=== PATIENT | male | born 1930 | race Caucasian/White ===

== ENCOUNTER → 2018-03-17 | Day surgery (SDC) | payer MEDICARE, BC ==
[2018-03-11 11:55] LABS: BASOPHILS # (AUTO) 0.1 (0.0-0.1); BASOPHILS % 0.5 % (0.0-1.0); EOSINOPHILS # (AUTO) 0.1 (0.0-0.4); EOSINOPHILS % 1.5 % (0.0-6.0); HEMATOCRIT 44.6 % (38.2-49.6); HEMOGLOBIN 15.1 g/dL (14.0-18.0); LYMPHOCYTES # (AUTO) 1.6 (1.0-3.2); LYMPHOCYTES % 16.9 % (18.0-39.1); MEAN CORPUSCULAR HEMOGLOBIN 31.7 pg (28-32); MEAN CORPUSCULAR HGB CONC 33.9 g/dL (31-35); MEAN CORPUSCULAR VOLUME 93.5 fL (81-99); MONOCYTES # (AUTO) 1.3 (0.2-0.8); MONOCYTES % 13.9 % (4.4-11.3); NEUTROPHILS # (AUTO) 6.4 (2.1-6.9); NEUTROPHILS % 66.7 % (38.7-80.0); PLATELET COUNT 190 x10e3/uL (140-360); RED BLOOD COUNT 4.77 x10e6/uL (4.3-5.7); RED CELL DISTRIBUTION WIDTH 13.2 % (11.7-14.4)
[2018-03-11 12:11] LABS: ANION GAP 13.3 mmol/L (8-16); CALCIUM 9.7 mg/dL (8.4-10.2); CREATININE, SERUM 1.4 mg/dL (0.72-1.25); POTASSIUM 4.3 mmol/L (3.5-5.1)
--- NOTE | 2018-03-11 12:24 | Diagnostic Imaging Report ---
EXAMINATION: PA and lateral views of the chest. 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 Lungs: The lungs are well inflated and clear. No pneumonia or pulmonary edema. Pleura: No pleural effusion or pneumothorax. Heart and mediastinum: The cardiomediastinal silhouette is normal. Bones and soft tissues: No acute bony abnormalities. IMPRESSION: No acute cardiopulmonary abnormalities. Signed by: Dr. Sachin Muniz M.D. on 03/11/2018 12:21 PM
[~2018-03-17] MED LIST: ACETAMINOPHEN 1000 MG/100 ML 100 ML IV ONE; ACETAMINOPHEN 325 MG/10 ML UDC ONE; ARICEPT5 MG PO; ASPIR 8181 MG PO; CEFTRIAXONE SOD 1 GM VIAL ONE; DEXAMETHASONE SOD PHOS INJ 4 MG/ML VIAL ONE; FENTANYL CITRATE/PF 100MCG/2 ML INJ ONE; FUROSEMIDE40 MG PO; LIDOCAINE HCL 2% LOCAL INJ 5 ML SDV VIAL INJ ONE; LORAZEPAM0.5 MG PO; NAMENDA10 MG PO; NIFEDIPINE10 MG PO; NUEDEXTA 20-101 EACH PO; ONDANSETRON HCL INJ 2 MG/ML VIAL ONE; PROPOFOL IV EMULSION 10 MG/ML 20 ML VIAL ONE; SEVOFLURANE INHAL SOLN 250 ML PEN BTL ONE; SYMBICORT 80-10.2 GM INH; TAMSULOSIN HCL0.4 MG PO; ULTRAM50 MG PO; VESICARE5 MG PO
--- OUTSIDE RECORDS SUMMARY | 2018-03-17 09:11 | XMS REPORT | Clinical Summary ---
Author Author [facility] Organization [facility] Address Unknown Phone Unavailable Care Team Providers Care Equipment Oiler Name Role Phone Asked, No Pcp PCP Unavailable Allergies No Known Allergies Medications End Date Status Medication Sig Dispensed Refills Start Date Active memantine (NAMENDA) 10 MG Take 28 mg by 0 tablet mouth daily. Active tamsulosin (FLOMAX) 0.4 Take 0.4 mg 0 mg capsule,extended by mouth release 24hr daily. Active oxybutynin (DITROPAN) 5 Take 10 mg by 0 MG tablet mouth 3 (three) times a day. Active furosemide (LASIX) 40 mg Take 40 mg by 0 tablet mouth 2 (two) times a day. Active donepezil (ARICEPT) 10 MG Take 10 mg by 0 tablet mouth nightly. Active LORAZepam (ATIVAN) 0.5 MG Take 0.5 mg 0 tablet by mouth every 6 (six) hours as needed for anxiety. Active metoprolol tartrate Take 25 mg by 0 (LOPRESSOR) 25 mg tablet mouth 2 (two) times a day. Active alfuzosin (UROXATRAL) 10 Take 10 mg by 0 mg 24 hr tablet mouth daily. Active aspirin (ECOTRIN) 81 MG Take 81 mg by 0 enteric coated tablet mouth daily. 08/08/2017 apixaban (ELIQUIS) 5 mg Take 1 tablet 60 tablet 0 tablet (5 mg total) 8 by mouth 2 (two) times a day for 30 days. Active Problems Problem Noted Date Chest pain 07/08/2017 Irregular heart beat 07/07/2017 Encounters Care Team Description Date Type Specialty Nav Rahman MD Obudulu, Rosemary Ogonnaya, MD Irregular heart beat (Primary Dx); Junctional bradycardia; Essential hypertension; Chest pain, unspecified type 07/07/2017 Emergency General Internal Medicine - 07/09/2017 after 03/16/2017 Social History Date Tobacco Use Types Packs/Day Years Used Never Assessed Sex Assigned at Date Recorded Not on file Industry Job Start Date Occupation Not on file Not on file Not on file Travel End Travel History Travel Start No recent travel history available. Last Filed Vital Signs Time Taken Vital Sign Reading 07/09/2017 3:32 PM EVALUATION MANAGER Blood Pressure 143/74 07/09/2017 3:32 PM EVALUATION MANAGER Pulse 89 07/09/2017 3:32 PM EVALUATION MANAGER Temperature 36.7 C (98 F) 07/09/2017 3:32 PM EVALUATION MANAGER Respiratory Rate 18 07/09/2017 3:32 PM EVALUATION MANAGER Oxygen Saturation 96% - Inhaled Oxygen - Concentration 07/09/2017 8:01 AM EVALUATION MANAGER Weight 87.7 kg (193 lb 7 oz) 07/07/2017 9:21 PM EVALUATION MANAGER Height 172.7 cm (5' 8") 07/09/2017 8:01 AM EVALUATION MANAGER Body Mass Index 29.41 Plan of Treatment Health Maintenance Due Date Last Done Comments SHINGRIX VACCINE (1 of 2) 01/15/1982 ZOSTER VACCINE 1992 PNEUMOCOCCAL 01/15/1997 POLYSACCHARIDE VACCINE AGE 65 AND OVER PNEUMOCOCCAL-13 01/15/1997 INFLUENZA VACCINE 12/01/2017 Procedures Comments Procedure Name Priority Date/Time Associated Diagnosis NM MYOCARDIAL PERFUSION Routine 07/09/2017 REST STRESS 1 DAY 1:07 PM EVALUATION MANAGER CV STRESS TEST NUCLEAR Routine 07/09/2017 CARDIO 1:07 PM EVALUATION MANAGER ZZESTIMATED GFR Routine 07/09/2017 8:58 AM EVALUATION MANAGER B NATRIURETIC PEPTIDE Routine 07/09/2017 8:58 AM EVALUATION MANAGER HC COMPLETE BLD COUNT Routine 07/09/2017 W/AUTO DIFF 8:58 AM EVALUATION MANAGER BASIC METABOLIC PANEL Routine 07/09/2017 8:58 AM EVALUATION MANAGER ECHOCARDIOGRAM 2D Routine 07/09/2017 COMPLETE W MMODE SPECTRAL 7:41 AM EVALUATION MANAGER COLOR DOPPLER ([id number]) HEMOGLOBIN A1C Routine 07/08/2017 4:16 AM EVALUATION MANAGER THYROID STIMULATING Routine 07/08/2017 HORMONE 4:16 AM EVALUATION MANAGER TROPONIN Timed 07/08/2017 4:16 AM EVALUATION MANAGER TROPONIN Timed 07/07/2017 8:30 PM EVALUATION MANAGER ECG 12-LEAD Routine 07/07/2017 7:36 PM EVALUATION MANAGER TROPONIN Timed 07/07/2017 5:00 PM EVALUATION MANAGER XR CHEST 1 VW STAT 07/07/2017 1:43 PM EVALUATION MANAGER PARTIAL THROMBOPLASTIN STAT 07/07/2017 TIME (PTT) 1:18 PM EVALUATION MANAGER PROTHROMBIN TIME WITH INR STAT 07/07/2017 1:18 PM EVALUATION MANAGER ZZESTIMATED GFR STAT 07/07/2017 1:18 PM EVALUATION MANAGER B NATRIURETIC PEPTIDE STAT 07/07/2017 1:18 PM EVALUATION MANAGER TROPONIN STAT 07/07/2017 1:18 PM EVALUATION MANAGER COMPREHENSIVE METABOLIC STAT 07/07/2017 PANEL 1:18 PM EVALUATION MANAGER HC COMPLETE BLD COUNT STAT 07/07/2017 W/AUTO DIFF 1:18 PM EVALUATION MANAGER ECG ED PRELIMINARY Routine 07/07/2017 INTERPRETATION 1:07 PM EVALUATION MANAGER ECG 12-LEAD STAT 07/07/2017 12:51 PM EVALUATION MANAGER after 03/16/2017 Results * CV stress test (07/09/2017 1:07 PM EVALUATION MANAGER) Resting HR 52 [facility] Resting BP 163 [facility] Peak MET Achieved 1.0 [facility] Protocol Name LEXJEANNIE H MUSE Time in Exercise Phase 00:00:53 [facility] Max Systolic BP 163 [facility] Max Diastolic BP 84 [facility] Max Heart Rate 68 [facility] Max Predicted Heart Rate 135 [facility] Target HR Formula (220 - Age)*85% [facility] Arrhy During Ex ventricular premature beats [facility] ECG Interp During Ex none [facility] Ex Summary Comment Normal stress test, MYOVIEW TO H MUSE FOLLOW Chest Pain Statement none [facility] Overall HR Response to appropriate [facility] MUSE Exercise Overall BP Response To normal resting BP - [facility] MUSE Exercise appropriate response Reason for Termination Protocol Completed... [facility] MUSE Stress Test Impression -Electronically Signed By [facility] Anyi Leon MD ([id number]), video effects editor José Miguel De Dios ([id number]) on 07/09/2017 11:11:11 AM Target HR 114.[address] [facility] MUSE Performing Organization Address City/[facility] Phone Number [facility] MUSE [address] [place] [address] * Nm myocardial perfusion (07/09/2017 1:07 PM EVALUATION MANAGER) Target HR 114.75 bpm [facility] Resting HR 47 BPM [facility] Resting BP 163/84 mmHg [facility] O2 sat rest 97 % [facility] Post peak HR 68 bpm [facility] Percent HR 59.26 % [facility] Post peak BP 163/84 mmHg [facility] O2 sat peak 97 % [facility] Narrative Performed At [facility] No chest pain No exercise induced ST-T changes. No arrhythmias with exercise. Normal heart rate and BP response. Myoview report Diaphragmatic attenuation artifact No conclusive significant large reversible Ischemia Normal wall motion EF 59 % Performing Organization Address [facility] Phone Number [facility] [address] [place] [address] * Estimated GFR (07/09/2017 8:58 AM EVALUATION MANAGER) Only the most recent of 2 results within the time period is included. GFR Non Af Amer 48 (A) mL/min/1.73 m2 [facility] DEPARTMENT OF PATHOLOGY AND GENOMIC MEDICINE GFR Af Amer 58 (A) mL/min/1.73 m2 [facility] DEPARTMENT OF Comment: PATHOLOGY AND Chronic kidney disease: <60 GENOMIC MEDICINE mL/min/1.73m2 Kidney failure: <15 mL/min/1.73m2 The estimated GFR is calculated from the IDMS-traceable Modification of Diet in Renal Disease Equation. The accuracy of the calculation is poor when the creatinine is normal. Calculated values >90 mL/min/1.73m2 are not reported. This equation has not been validated in children (<18 years), women, the elderly (>70 years), or ethnic groups other than Caucasians and Americans. Specimen Plasma specimen Performing Organization Address City/[facility] Phone Number [facility] [address] [place] [address] PATHOLOGY AND GENOMIC MEDICINE * CBC with platelet and differential (07/09/2017 8:58 AM EVALUATION MANAGER) Only the most recent of 2 results within the time period is included. WBC 8.2 4.2 - 11.0 k/uL [facility] DEPARTMENT OF PATHOLOGY AND GENOMIC MEDICINE RBC 4.75 4.04 - 5.86 m/uL [facility] DEPARTMENT OF PATHOLOGY AND GENOMIC MEDICINE HGB 14.8 13.0 - 17.3 g/dL [facility] DEPARTMENT OF PATHOLOGY AND GENOMIC MEDICINE HCT 44.7 34.0 - 45.0 % [facility] DEPARTMENT OF PATHOLOGY AND GENOMIC MEDICINE MCV 94.1 80.0 - 98.0 fL [facility] DEPARTMENT OF PATHOLOGY AND GENOMIC MEDICINE MCH 31.2 27.0 - 34.0 pg [facility] DEPARTMENT OF PATHOLOGY AND GENOMIC MEDICINE MCHC 33.1 31.5 - 36.5 g/dL [facility] DEPARTMENT OF PATHOLOGY AND GENOMIC MEDICINE RDW - SD 45.2 37.0 - 51.0 fL [facility] DEPARTMENT OF PATHOLOGY AND GENOMIC MEDICINE MPV 10.4 7.4 - 10.4 fL [facility] DEPARTMENT OF PATHOLOGY AND GENOMIC MEDICINE Platelet count 181 150 - 400 k/uL [facility] DEPARTMENT OF PATHOLOGY AND GENOMIC MEDICINE Nucleated RBC 0.00 /100 WBC [facility] DEPARTMENT OF PATHOLOGY AND GENOMIC MEDICINE Neutrophils 68.9 (H) 36.0 - 66.0 % [facility] DEPARTMENT OF PATHOLOGY AND GENOMIC MEDICINE Lymphocytes 18.5 (L) 24.0 - 44.0 % [facility] DEPARTMENT OF PATHOLOGY AND GENOMIC MEDICINE Monocytes 8.2 (H) 0.0 - 6.0 % [facility] DEPARTMENT OF PATHOLOGY AND GENOMIC MEDICINE Eosinophils 3.4 0.0 - 6.0 % [facility] DEPARTMENT OF PATHOLOGY AND GENOMIC MEDICINE Basophils 0.6 0.0 - 1.2 % [facility] DEPARTMENT OF PATHOLOGY AND GENOMIC MEDICINE Immature granulocytes 0.4 0.0 - 1.0 % [facility] DEPARTMENT OF PATHOLOGY AND GENOMIC MEDICINE Specimen Blood Performing Organization Address City/State/Zipcode Phone Number [facility] [place] [address] PATHOLOGY AND GENOMIC MEDICINE * B natriuretic peptide (07/09/2017 8:58 AM EVALUATION MANAGER) Only the most recent of 2 results within the time period is included. BNP 342 (H) 0 - 100 pg/mL [facility] DEPARTMENT OF PATHOLOGY AND GENOMIC MEDICINE Specimen Blood Performing Organization Address [facility] Phone Number [facility] [address] [place] [address] PATHOLOGY AND [facility] * Basic metabolic panel (07/09/2017 8:58 AM EVALUATION MANAGER) Sodium 140 135 - 150 mEq/L [facility] DEPARTMENT OF PATHOLOGY AND GENOMIC MEDICINE Potassium 4.0 3.5 - 5.0 mEq/L [facility] DEPARTMENT OF PATHOLOGY AND GENOMIC MEDICINE Chloride 107 100 - 109 mEq/L [facility] DEPARTMENT OF PATHOLOGY AND GENOMIC MEDICINE CO2 28 24 - 32 mmol/L [facility] DEPARTMENT OF PATHOLOGY AND GENOMIC MEDICINE Anion gap 5 (L) 7 - 15 mEq/L [facility] DEPARTMENT OF Comment: PATHOLOGY AND Starting from August [facility] , anion gap calculation no longer incorporates potassium. Please note the change. BUN 26 (H) 7 - 18 mg/dL [facility] DEPARTMENT OF PATHOLOGY AND GENOMIC MEDICINE Creatinine 1.4 0.8 - 1.5 mg/dL [facility] DEPARTMENT OF PATHOLOGY AND GENOMIC MEDICINE Glucose 145 (H) 65 - 100 mg/dL [facility] DEPARTMENT OF PATHOLOGY AND GENOMIC MEDICINE Calcium 9.0 8.6 - 10.7 mg/dL [facility] DEPARTMENT OF PATHOLOGY AND [facility] Specimen Plasma specimen Performing Organization Address [facility] Phone Number [place] [address] [place] [place] [address] PATHOLOGY AND [facility] MEDICINE * Echocardiogram complete w contrast and 3D if needed (07/09/2017 7:41 AM EVALUATION MANAGER) Velocity Ratio (V1/V2) 0.63 m/s [facility] IVS,d 0.98 0.6 - 1.2 cm CUPID EF 62.19 % [facility] LVPWD,d 0.96 cm [facility] AoV Mean PG 1.15 mmHg [facility] AV LVOT peak gradient 1.60 mmHg [facility] MV mean gradient 0.64 mmHg [facility] MV valve area p 1/2 6.83 cm2 [facility] method E/A ratio 3.73 [facility] E wave decelartion time 111.04 msec [facility] LVOT Diam,S 2.04 cm [facility] LVOT area 3.27 cm2 [facility] LVOT Vmax 0.63 m/s [facility] LVOT VTI 0.14 m [facility] AoV Peak PG 4.02 mmHg [facility] MV Peak E Munir 1.12 m/s [facility] MV stenosis pressure 1/2 32.20 ms [facility] time MV Peak A Munir 0.30 m/s [facility] Ao Root Diameter 4.16 cm [facility] AoV Area, Vmax 2.84 cm2 [facility] AoV Area, VTI 2.86 cm2 [facility] AoV Vmax 1.00 m/s [facility] IVS/LVPW,2D 1.02 [facility] Left Atrium Dimension 5.41 cm [facility] Anterior LV,d 5.34 cm [facility] LV,s 3.53 cm [facility] TR Vpeak 3.56 mm/s [facility] MV E A ratio 3.69 mmHg [facility] TR pk grad 50.56 mmHg [facility] MR peak grad 5.36 mmHg [facility] Ao Root Diameter 4.16 cm [facility] LV SYS VOL 51.97 ml [facility] LV IBARRA VOL 137.46 ml [facility] LV SV Teich 2D 85.48 ml [facility] LV Vol s Teich PSAX 51.97 ml [facility] LVOT CO 2.09 l/min [facility] LVOT HR for LVOT CO 45.60 bpm [facility] MV Vmax 1.16 m [facility] MV VTI Tips 0.23 m [facility] AoV Vmn 0.51 [facility] IVS s 2D 1.30 [facility] LV FS Cube 2D 33.81 [facility] LV FS Teich 2D 33.81 [facility] AoV VTI 0.16 m [facility] LV EF,2D 71.01 % [facility] MV AE ratio 0.27 [facility] LVOT Vmn 0.41 [facility] Aov area Vmn 2.26 cm2 [facility] LVOT mean grad 0.78 mmHg [facility] MAX Pred HR 134.52 [facility] 85 of MPHR 114.34 [facility] Calc MPHR 134.52 bpm [facility] IVS pct thck PLAX 32.05 % [facility] LV SV Cube 2D 107.86 ml [facility] LV vol d cube 2D 151.90 ml [facility] LV vol s cube 2D 44.04 ml [facility] LVPW pct thck PLAX 31.63 % [facility] LVPW s PLAX 1.27 cm [facility] MV Decel slope 10.08 m/s2 [facility] Pred Exer Dur R1 4.80 [facility] Pred METS R1 5.18 [facility] Narrative Performed At [facility] The left ventricle chamber size is normal. Left Ventricular ejection fraction is 50 - 55%. Right ventricular size is upper limits of normal. Left atrium size is mildly dilated. Right atrium size moderately dilated. The anterior leaflet is moderate thickened and/or calcified. There is a mild prolapse of the mitral valve. Mild mitral valve regurgitation Performing Organization Address [facility] Phone Number [facility] [address] [place] [address] * Troponin (07/08/2017 4:16 AM EVALUATION MANAGER) Only the most recent of 4 results within the time period is included. Troponin <0.01 0.00 - 0.60 ng/mL [facility] DEPARTMENT OF Comment: PATHOLOGY AND 0.11 - 1.49 GENOMIC MEDICINE ng/mlMay indicate increased risk of acute coronary syndrome. >=1.5 ng/ml Consistent with acute myocardial infarction. The diagnostic value of a single normal or non-diagnostic result is questionable.Serial samples at 2-6 hour intervals are required to rule out acute myocardial injury. Specimen Plasma specimen Performing Organization Address [facility] Phone Number [address] [place] [phone] PATHOLOGY AND GENOMIC MEDICINE * Thyroid stimulating hormone (07/08/2017 4:16 AM EVALUATION MANAGER) TSH 1.50 0.38 - 4.82 uIU/mL [facility] DEPARTMENT OF PATHOLOGY AND GENOMIC MEDICINE Specimen Plasma specimen Performing Organization Address [facility] Phone Number [address] [place] [address] PATHOLOGY AND GENOMIC MEDICINE * Hemoglobin A1c (07/08/2017 4:16 AM EVALUATION MANAGER) Hemoglobin A1C 5.4 4.0 - 6.0 % [facility] DEPARTMENT OF Comment: PATHOLOGY AND GENOMIC MEDICINE Less than 6% - Goal of therapy for Type II Diabetes Less than 7%-Goal of therapy for Type I Diabetes Less than 8%-Accepta ble control for Type I or Type II Diabetes Greater than 8%-Unacceptabl e control; action indicated. ([id number]) Specimen Blood Performing Organization Address City/[facility]/Zipcode Phone Number [facility] DEPARTMENT OF [address] [place] [address] PATHOLOGY AND GENOMIC MEDICINE * ECG 12 lead (07/07/2017 7:36 PM EVALUATION MANAGER) Only the most recent of 2 results within the time period is included. Ventricular rate 62 [facility] Atrial rate 84 [facility] MUSE QRSD interval 90 H MUSE QT interval 456 [facility] MUSE QTC interval 462 [facility] MUSE QRS axis 1 81 [facility] MUSE T wave axis 38 [facility] MUSE EKG impression Atrial [facility] MUSE fibrillation-Indeterminate axis-Abnormal ECG-In automated comparison with ECG of 07-JUL-2017 12:51,-Previous ECG has undetermined rhythm, needs review- Performing Organization Address [facility] Phone Number [facility] [address] [place] [address] * XR Chest 1 Vw (07/07/2017 1:43 PM EVALUATION MANAGER) Narrative Performed At EXAMINATION:XR CHEST 1 VW RADIANT CLINICAL HISTORY:Chest Pain COMPARISON:Single view chest from 07/12/2016 IMPRESSION: Tracker single view No significant change in appearance of the chest when compared previous examination. The lungs are clear. The mediastinal contours and cardiac silhouette are unchanged. Rounded opacity seen within the left hilar region likely represents the left pulmonary artery. The bones are unremarkable. [facility]-[id number] Procedure Note Hm Interface, Radiology Results Incoming - 07/07/2017 1:51 PM EVALUATION MANAGER EXAMINATION: XR CHEST 1 VW CLINICAL HISTORY: Chest Pain COMPARISON: Single view chest from 07/12/2016 IMPRESSION: Tracker single view No significant change in appearance of the chest when compared previous examination. The lungs are clear. The mediastinal contours and cardiac silhouette are unchanged. Rounded opacity seen within the left hilar region likely represents the left pulmonary artery. The bones are unremarkable. [facility]-[id number] Performing Organization Address [facility] Phone Number [facility] [address] [place] [address] * Partial thromboplastin time, activated (07/07/2017 1:18 PM EVALUATION MANAGER) PTT 29.9 23.0 - 36.0 sec [facility] DEPARTMENT OF Comment: PATHOLOGY AND PTT therapeutic range for [facility] MEDICINE unfractionated heparin is 61.0-112.0 seconds which corresponds to Anti-Xa 0.3-0.7 U/ml. Note:Change in Panic Value The PTT Panic Value is changing from 110 sec. to 100 sec. due to new instrumentation and reagents. Correlation studies have been performed to validate this result. Specimen Blood Performing Organization Address City/[facility] Phone Number [address] [place], [place] [phone] [place] [address] AND [facility] * Prothrombin time with INR (07/07/2017 1:18 PM EVALUATION MANAGER) Prothrombin time 14.8 12.0 - 15.0 sec [facility] PATHOLOGY [facility] [facility] INR 1.14 (H) 0.92 - 1.12 [facility] DEPARTMENT OF Comment: PATHOLOGY AND For patients on anticoagulant [facility] therapy, reference ranges below: Indication: INR Value Treatment of Venous Thrombosis, 2.0-3.0 pulmonary emboli, or prophylaxis of a venous thrombosis, or systemic emboli. High dose, high risk patients 3.0-4.5 with mechanical valves. NOTE:INR values over 3.0 are sometimes associated with gastrointestinal hemorrhage, especially values over 4.0. Specimen Blood Performing Organization Address City/State/[facility] Phone Number [facility] [address] [facility] [place], [place] [phone] [place] [address] AND [employer] * Comprehensive metabolic panel (07/07/2017 1:18 PM EVALUATION MANAGER) Sodium 141 135 - 150 mEq/L [facility] DEPARTMENT OF PATHOLOGY AND [employer] Potassium 4.1 3.5 - 5.0 mEq/L [facility] DEPARTMENT OF PATHOLOGY AND [facility] Chloride 109 100 - 109 mEq/L [facility] DEPARTMENT OF PATHOLOGY AND [facility] CO2 26 24 - 32 mmol/L [facility] DEPARTMENT OF PATHOLOGY AND [facility] Anion gap 6 (L) 7 - 15 mEq/L [facility] DEPARTMENT OF Comment: PATHOLOGY AND Starting from August [facility] , anion gap calculation no longer incorporates potassium. Please note the change. BUN 32 (H) 7 - 18 mg/dL [facility] DEPARTMENT OF PATHOLOGY AND [facility] Creatinine 1.5 0.8 - 1.5 mg/dL [facility] DEPARTMENT OF PATHOLOGY AND GENOMIC MEDICINE Glucose 94 65 - 100 mg/dL [facility] DEPARTMENT OF PATHOLOGY AND GENOMIC MEDICINE Calcium 8.9 8.6 - 10.7 mg/dL [facility] DEPARTMENT OF PATHOLOGY AND GENOMIC MEDICINE Protein 6.7 6.3 - 8.2 g/dL [facility] DEPARTMENT OF PATHOLOGY AND GENOMIC MEDICINE Albumin 3.5 3.2 - 5.0 g/dL [facility] DEPARTMENT OF PATHOLOGY AND GENOMIC MEDICINE A/G ratio 1.1 0.7 - 3.8 [facility] DEPARTMENT OF PATHOLOGY AND GENOMIC MEDICINE Alkaline phosphatase 68 30 - 120 U/L [facility] DEPARTMENT OF PATHOLOGY AND GENOMIC MEDICINE AST 34 15 - 37 U/L [facility] DEPARTMENT OF PATHOLOGY AND GENOMIC MEDICINE ALT 33 30 - 65 U/L [facility] DEPARTMENT OF PATHOLOGY AND GENOMIC MEDICINE Total bilirubin 0.7 0.2 - 1.2 mg/dL [facility] DEPARTMENT OF PATHOLOGY AND GENOMIC MEDICINE Specimen Plasma specimen Performing Organization Address City/State/Zipcode Phone Number [place] [address] [place] [address] PATHOLOGY AND GENOMIC MEDICINE * ECG ED Preliminary Interpretation - NOT AN ORDER (07/07/2017 1:07 PM EVALUATION MANAGER) Narrative Performed At Nav Rahman MD 07/09/2017 10:34 AM ECG ED Preliminary Interpretation - Not an Order Performed by: NAV RAHMAN Authorized by: NVA RAHMAN ECG reviewed by ED Physician in the absence of a embedder: yes Interpretation: Interpretation: abnormal Rate: ECG rate:49 ECG rate assessment: bradycardic ECG rate assessment comment:Irregular Rhythm: Rhythm: junctional Rhythm comment:Irregular junctional bradycardia Ectopy: Ectopy: none QRS: QRS axis:Normal Conduction: Conduction: normal ST segments: ST segments:Normal T waves: T waves: normal after 03/16/2017 Insurance Payer Benefit Subscriber ID Type Phone Address Plan / Group MEDICARE MEDICARE xxxxxxxxxx Medicare [place], [place] PART A AND B BCBS ANTHEM xxxxxxxxxxxx [facility] Advance Directives Patient has advance care planning documents on file. For more information, darya rodney contact: Yanick Shoemaker [address] [place] [address]
--- OUTSIDE RECORDS SUMMARY | 2018-03-17 09:12 | XMS REPORT ---
Author [facility] Address Unknown Phone Unavailable Care Team Providers Care Pull Out Operator Name Role Phone Herb MONTANA Unavailable Unavailable Problems This patient has no known problems. Allergies, Adverse Reactions, Alerts This patient has no known allergies or adverse reactions. Medications This patient has no known medications. Results Test Description Test Time Test Comments Text Results Atomic Results Result Comments CHEST 2 VIEWS 2018-03-11 12:19:00 [place] [address] Patient Name: KADIE CUEVA MR #: [id number] : 1930 Age/Sex: 88/M Req #: [id number] Adm Physician: Ordered by: BRICE MONTANA MD Report #: [id number] Location: OR Room/Bed: Procedure: [id number] DX/CHEST 2 VIEWS Exam Date: 03/11/18 Exam Time: 1200 REPORT STATUS: Signed EXAMINATION: PA and lateral views of the chest. 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 Lungs: The lungs are well inflated and clear. No pneumonia or pulmonary edema. Pleura: No pleural effusion or pneumothorax. Heart and mediastinum: The cardiomediastinal silhouette is normal. Bones and soft tissues: No acute bony abnormalities. IMPRESSION: No acute cardiopulmonary abnormalities. Signed by: Dr. Sahra Mccormick M.D. on 03/11/2018 12:21 PM Dictated By: SAHRA MCCORMICK MD [id number] Transcribed By: VIDAL on 03/11/18 1221 COPY TO: BRICE MONTANA MD
[2018-03-17 17:20] VITALS: BP 131/90
--- NOTE | 2018-04-07 11:43 | Operative Report ---
DATE OF PROCEDURE: March 17, 2018 PREOPERATIVE DIAGNOSIS: Urethral stricture disease. POSTOPERATIVE DIAGNOSIS: Urethral stricture disease. PROCEDURES PERFORMED 1. Cystostomy. 2. Direct visual internal urethrotomy. ANESTHESIA: General anesthesia. ESTIMATED BLOOD LOSS: Minimal. INDICATIONS: Mr. Lopez is an 88-year-old gentleman with prior history of retention and long-term Dawn catheter placement who is now reporting increasing incontinence without the catheter. An attempt at placement of a catheter was unsuccessful in the office. He now presents for definitive management of this problem. PROCEDURE IN DETAIL: The patient was brought into the operating room and placed in supine position. After administration of general anesthesia, he was placed in the dorsal lithotomy position and prepped and draped in the usual sterile fashion. Cystourethroscopy was performed using the optical urethrotome. The anterior and posterior urethra was noted to be normal distally; but in the region of the mid bulb was a dense stricture approximately 5 mm in caliber. An open-ended catheter was placed through this, and the cold knife was used to incise the urethra both at 6 o'clock and 12 o'clock positions until the scope could be easily passed through the scar. The total length of the scarring was approximately 1.5 cm. The urethra distal to this was noted to be a little ratty with some widely patent strictures. The urethra proximal to this was otherwise unremarkable. The prostate revealed mild obstruction. The bladder was entered without difficulty. An Amplatz wire was placed, and a Councill-tip catheter 18 [place]ian was placed over this into the bladder. The urinary efflux was noted to be blood-tinged. The catheter was placed to gravity drainage, and anesthesia was reversed. Patient was transferred to a bed and taken to the postanesthesia care unit in good condition. Of note, the needle and instrument counts were correct at the conclusion of the case. Job#: [id number]
== END | disposition home or self-care (01) ==
LOC: OR 09:09
PROVIDERS: ATTEND Urology
DX: N35.912 Unspecified bulbous urethral stricture, male (principal); C61 Malignant neoplasm of prostate; N40.0 Benign prostatic hyperplasia without lower urinary tract symptoms; I10 Essential (primary) hypertension; I48.91 Unspecified atrial fibrillation; F03.90 Unspecified dementia, unspecified severity, without behavioral disturbance, psychotic disturbance, mood disturbance, and anxiety; Z01.810 Encounter for preprocedural cardiovascular examination; Z01.812 Encounter for preprocedural laboratory examination; Z01.818 Encounter for other preprocedural examination; Z79.82 Long term (current) use of aspirin; Z68.30 Body mass index [BMI] 30.0-30.9, adult
CPT/HCPCS: 36415; 52276; 71046; 80048; 85025; 93005; J0131; J0696; J1100; J2001; J2405; J2704